=== PATIENT | female | born 1955 | race Caucasian/White ===

== ENCOUNTER 2018-08-31 09:01 | Observation (INO) | END 2018-09-01 18:55 | disposition home or self-care (01) ==

== ENCOUNTER 2019-01-05 20:18 | Emergency (ER) | payer SELFPAY ==
[~2019-01-05] VITALS: Ht 167.6 cm; Wt 92.4 kg
[~2019-01-05 20:18] MED LIST: ASPI81TA52 PO; CALC667C PO; FAMO20TA18 PO; LOSA100T15 PO; SEVE800T7 PO
[2019-01-05 20:33] VITALS: Ht 167.6 cm; Wt 92.4 kg
[2019-01-06] MEDS ORDERED: HYDR-4011 PO (00:06)
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
[2019-01-06 00:24] VITALS: BP 145/80; PULSE 80; RESP 18
== END 2019-01-06 00:24 | disposition home or self-care (01) ==
LOC: FTE 20:18
DX: S52.502A Unspecified fracture of the lower end of left radius, initial encounter for closed fracture (principal); S52.602A Unspecified fracture of lower end of left ulna, initial encounter for closed fracture; V49.40XA Driver injured in collision with unspecified motor vehicles in traffic accident, initial encounter; Z79.82 Long term (current) use of aspirin